=== PATIENT | male | born 1950 ===

== ENCOUNTER → 2021-08-23 14:30 | Outpatient (ROUT) | payer OTHER, SELFPAY ==
[2021-08-23 15:34] LABS: BUN Creatinine Ratio 13.9 (6-22); Blood Urea Nitrogen 90 mg/dL (9-20); Calcium 9.8 mg/dL (8.4-10.2); Carbon Dioxide 23 mmol/L (22-32); Chloride 101 mmol/L (98-107); Estimated Glomerular Filt Rate 8.6 mL/min (>60); Glucose 183 mg/dL (80-110); HEMOLYSIS < 15 (0-50); Sodium 132 mmol/L (137-145)
== END ==
PROVIDERS: Visit Provider Family Medicine
DX: Z13.9 Encounter for screening, unspecified (principal)
CPT/HCPCS: 80048